=== PATIENT | male | born 1955 | race Asian ===

== ENCOUNTER 2022-07-14 11:01 | Emergency (ER) | payer OTHER ==
[~2022-07-14] VITALS: Ht 157.5 cm; Wt 59.9 kg
[2022-07-14 17:00] VITALS: BP 128/64
[2022-07-14] MEDS ORDERED: CEPH-510 PO (17:40)
[2022-07-14] MEDS ORDERED: TETANUS-DIPTH-ACEL PERTUSSIS 0.5ML SYR Tdap IM ONE (17:45)
== END 2022-07-14 18:02 | disposition home or self-care (01) ==
LOC: ER 11:01 → EDBD 11:01 → ER 18:02
DX: S61.452A Open bite of left hand, initial encounter (principal); W54.0XXA Bitten by dog, initial encounter; Y93.89 Activity, other specified; Y92.89 Other specified places as the place of occurrence of the external cause; Y99.8 Other external cause status
CPT/HCPCS: 90471; 90715